=== PATIENT | male | born 1995 | race African-American/Black ===

== ENCOUNTER 2021-04-14 14:37 | Emergency (ER) | payer OTHER ==
[~2021-04-14] VITALS: Ht 172.7 cm; Wt 68.0 kg
[2021-04-14] MEDS ORDERED: PREDNISONE 20 M20 MG PO (16:23)
[2021-04-14 16:47] VITALS: BP 119/67
== END 2021-04-14 16:48 | disposition home or self-care (01) ==
LOC: M.ERS 14:37
DX: L25.9 Unspecified contact dermatitis, unspecified cause (principal)